=== PATIENT | female | born 1985 | race Caucasian/White ===

== ENCOUNTER 2024-12-06 04:50 | Emergency (ER) | payer OTHER, SELFPAY ==
[2024-12-06 04:52] VITALS: BP 129/87
[2024-12-06 05:03] VITALS: BP 128/75
--- NOTE | 2024-12-06 05:05 | ED.GENMED ---
History of Present Illness
<Drew Flynn MD - Last Filed: 12/06/24 17:11>
General
Chief Complaint: Heart Rate Problem
Source: patient and family
Exam Limitations: none
Time Seen by Provider: 12/06/24 05:05
Nursing documentation reviewed up to this point in time: agreed with
History of Present Illness
History of Present Illness:
Patient presents to ED secondary to a 1 week history of continual throat pain, fever, chills, and sweats. Patient was evaluated at primary care's office yesterday where she tested positive for strep throat. Patient was prescribed Augmentin, with 3
doses taken. She woke up this morning with was again fever, chills, and jaw pain. She has taken Advil with improvement. Denies vomiting or diarrhea. Denies trauma. Denies headache. Denies dizziness. No loss of appetite. Denies rash. In
addition, patient reports intermittent joint pain. Denies recent travel. Denies sick contact. Denies previous history of similar symptoms.
Review of Systems
<Drew Flynn MD - Last Filed: 12/06/24 17:11>
Review of Systems
Allergies reviewed?: Yes
All Other Systems: ROS reviewed and negative except as documented in HPI and ROS
Constitutional: Reports fever and chills
EENT: Reports sore throat
Respiratory: Reports cough; Denies trouble breathing
Cardiac: Reports no symptoms
ABD/GI: Reports no symptoms; Denies abdominal pain, vomiting or diarrhea
Musculoskeletal: Reports joint pain
Skin: Reports no symptoms; Denies rash
Neurological: Reports no symptoms; Denies headache or weakness
Phy Exam
<Drew Flynn MD - Last Filed: 12/06/24 17:11>
Physical Exam
Physical Exam:
Physical Exam
General: mild distress, not acutely ill. afebrile
Head: nc/at. eomi
Neck: supple. no meningeal signs. normal posterior pharynx. anterior cervical lymph nodes tender to palpation with mild swelling
Heart: s1/s2 regular rate and rhythm, no murmur. equal radial pulses.
Lungs: no acute respiratory distress. clear bilaterally
Abdomen: normal bowel sounds. not tender.
Neuro: alert and oriented x 3. no focal neurological deficits
Skin: no rash
Psychiatric: well kept. interactive and cooperative
Extremities: no edema. no calf tenderness.
Sepsis
<Drew Flynn MD - Last Filed: 12/06/24 17:11>
Sepsis Screening
Sepsis Assessment: Sepsis Ruled Out
Sepsis Screen
Sepsis Screen: Sepsis Ruled Out
Date: 12/06/24
Time: 17:11
Course
<Drew Flynn MD - Last Filed: 12/06/24 17:11>
Orders/Labs/Results
Orders:
Orders
12/06/24 04:57
EKG [Electrocardiogram (*1)] Urgent
Reason for Study: Tachycardia
EKG- Treatment ONCE
12/06/24 05:19
0.9% Sodium Chloride 1000 ml [Nss] 1,000 ml IV BOLUS
Dexamethasone Sod Phosphate [Decadron] 10 mg IV NOW STA
Ketorolac [Toradol] 15 mg IV NOW STA
Test Result ONCE
CR Soft Tissue Neck Urgent
Comment:
Reason For Exam: throat pain
12/06/24 05:32
Complete Blood Count/With Diff Urgent
Comprehensive Metabolic Panel Urgent
Free T4 Urgent
HCG, Serum Qualitative Screen Urgent
Lactic Acid Q4H
Comment: CANCEL 2nd LACTIC ACID IF 1st LACTIC ACID IS LESS THAN 2
Lyme Progressive Urgent
Magnesium Urgent
TSH Reflex To Free T4 Urgent
Comment: ADD ON
Blood Culture Q30M
ARACELI Source: Blood/Venous
Specimen Description:
12/06/24 06:02
Blood Culture Q30M
ARACELI Source: Blood/Venous
Specimen Description:
12/06/24 07:09
Add On- LAB Urgent
Tests Added?: TSH reflex Free T4
Abnormal Lab Results
12/06/24
05:32
RBC 3.74 L 10^6/uL
(4.20-5.40)
Hgb 10.8 L g/dL
(12.0-16.0)
Hct 31.6 L %
(37.0-47.0)
Absolute Neuts (auto) 6.6 H 10^3/uL
(1.4-6.5)
Absolute Monos (auto) 0.7 H 10^3/uL
(0.1-0.6)
Neutrophils % 75.5 H %
(42.2-75.2)
Lymphocytes % 14.1 L %
(20.5-51.1)
Creatinine 0.4 L mg/dL
(0.6-1.0)
Glucose 119 H mg/dl
(70-99)
Lactic Acid 0.6 L mmol/L
(0.7-2.0)
TSH (Reflex) < 0.02 L uIU/ml
(0.47-4.68)
Free T4 4.47 H ng/dl
(0.78-2.19)
12/06/24 05:32
12/06/24 05:32
Vital Signs
Initial and Last Documented VS:
Initial Vital Signs
Temp Pulse Resp BP Pulse Ox
98.7 F 131 20 129/87 100
12/06/24 04:52 12/06/24 04:52 12/06/24 04:52 12/06/24 04:52 12/06/24 04:52
Last Documented Vital Signs
Temp Pulse Resp BP Pulse Ox
98.7 F 117 21 128/75 98
12/06/24 04:52 12/06/24 07:15 12/06/24 07:15 12/06/24 05:03 12/06/24 07:24
<Paulo Butler, DO - Last Filed: 12/06/24 09:08>
Orders/Labs/Results
Orders:
Orders
12/06/24 04:57
EKG [Electrocardiogram (*1)] Urgent
Reason for Study: Tachycardia
EKG- Treatment ONCE
12/06/24 05:19
0.9% Sodium Chloride 1000 ml [Nss] 1,000 ml IV BOLUS
Dexamethasone Sod Phosphate [Decadron] 10 mg IV NOW STA
Ketorolac [Toradol] 15 mg IV NOW STA
Test Result ONCE
CR Soft Tissue Neck Urgent
Comment:
Reason For Exam: throat pain
12/06/24 05:32
Complete Blood Count/With Diff Urgent
Comprehensive Metabolic Panel Urgent
Free T4 Urgent
HCG, Serum Qualitative Screen Urgent
Lactic Acid Q4H
Comment: CANCEL 2nd LACTIC ACID IF 1st LACTIC ACID IS LESS THAN 2
Lyme Progressive Urgent
Magnesium Urgent
TSH Reflex To Free T4 Urgent
Comment: ADD ON
Blood Culture Q30M
ARACELI Source: Blood/Venous
Specimen Description:
12/06/24 06:02
Blood Culture Q30M
ARACELI Source: Blood/Venous
Specimen Description:
12/06/24 07:09
Add On- LAB Urgent
Tests Added?: TSH reflex Free T4
Abnormal Lab Results
12/06/24
05:32
RBC 3.74 L 10^6/uL
(4.20-5.40)
Hgb 10.8 L g/dL
(12.0-16.0)
Hct 31.6 L %
(37.0-47.0)
Absolute Neuts (auto) 6.6 H 10^3/uL
(1.4-6.5)
Absolute Monos (auto) 0.7 H 10^3/uL
(0.1-0.6)
Neutrophils % 75.5 H %
(42.2-75.2)
Lymphocytes % 14.1 L %
(20.5-51.1)
Creatinine 0.4 L mg/dL
(0.6-1.0)
Glucose 119 H mg/dl
(70-99)
Lactic Acid 0.6 L mmol/L
(0.7-2.0)
TSH (Reflex) < 0.02 L uIU/ml
(0.47-4.68)
Free T4 4.47 H ng/dl
(0.78-2.19)
12/06/24 05:32
12/06/24 05:32
Vital Signs
Initial and Last Documented VS:
Initial Vital Signs
Temp Pulse Resp BP Pulse Ox
98.7 F 131 20 129/87 100
12/06/24 04:52 12/06/24 04:52 12/06/24 04:52 12/06/24 04:52 12/06/24 04:52
Last Documented Vital Signs
Temp Pulse Resp BP Pulse Ox
98.7 F 117 21 128/75 98
12/06/24 04:52 12/06/24 07:15 12/06/24 07:15 12/06/24 05:03 12/06/24 07:24
<Drew Flynn MD - Last Filed: 12/06/24 17:11>
MDM/Problems Addressed
MDM/Problems Addressed:
Blood work within normal limits. Neck soft tissue headache, does not reveal any acute abnormal findings. Patient's presenting symptoms likely secondary to recently diagnosed strep pharyngitis. Patient will be provided with supportive treatment,
i.e. IV fluids, Toradol, and Decadron. If patient remains comfortable with improved heart rate after treatment, patient will be discharged home with recommendation to continue already prescribed Augmentin, as well as PCP follow-up as an outpatient.
Blood culture pending.
Lyme titer pending.
<Drew Flynn MD - Last Filed: 12/06/24 17:11>
*Pulse Oximetry
SaO2: 100
Oxygen Mode of Delivery: Room air
Patient hypoxic: no
*EKG
Interpreted by ED Provider?: Yes
EKG Intrepretation Date: 12/06/24
Heart Rate: 116
Rate: tachycardiac
Rhythm: sinus
[place]ton: normal axis
Interval: normal interval
QRS Pattern: normal QRS
*Critical Care Note
Total Time (30-74mins, 75-104mins- exclusive of procedures): Not Applicable
<Paulo Butler DO - Last Filed: 12/06/24 09:08>
Update Note
Update Note:
7:15 AM care of patient was transitioned earlier in the morning pending reassessment after fluids. Patient presented with throat discomfort and tachycardia. Blood work without clinically relevant abnormalities. Patient feeling better after IV
fluids. Soft tissue neck x-ray without significant abnormality. I did offer more IV fluids but patient states she feels comfortable going home. I will add on TSH testing
9:07 AM I called the patient's cell phone and left a message as we had previously discussed. I let her know that her thyroid-stimulating hormone is undetectable and her free T4 is elevated. We discussed having this followed by her primary care
ED Attending Note
<Drew Flynn MD - Last Filed: 12/06/24 17:11>
-
Portions of this chart may have been created with voice recognition software.� Occasional wrong word or��sound alike� substitutions may have occurred due to the inherent limitations of voice recognition software.
Discharge Plan
Departure
Patient Disposition: Home (Routine Discharge)
Date of Disposition: 12/06/24
Time of Disposition: 07:14
Patient with high blood pressure during this ER visit?: Yes
Discharge Problem:
Acute streptococcal pharyngitis
Instructions: Strep throat - ED discharge instructions
Prescriptions:
No Action
PNV,calcium [id number] acid [ Vitamin Plus Low Iron] 1 TABLET tablet
1 tab PO DAILY
Mag-Oxide
300 mg PO DAILY
ibuprofen 600 MG tablet
600 mg PO Q4HPRN PRN (Reason: moderate pain/cramps) 0RF
sertraline 50 MG tablet
50 mg PO DAILY Qty: 30 0RF
Referrals:
UNKNOWN - PT DOES,NOT KNOW [Family Provider]
Activity Restrictions/Additional Instructions:
Please return for any worsening symptoms.
You may return at any time if you have further concerns.
Please follow up with your doctor at the first available appointment, preferably this week.
As we discussed, I will call you later in the day when your thyroid function test returns.
Thank you for choosing [facility].
Interventions
Interventions:
*Risk Screen - Suicide Last Done: 12/06/24 04:52
*General Assessment Last Done: 12/06/24 04:52
*Neglect/Abuse Screening Last Done: 12/06/24 04:52
*ED- Fall Risk Assessment Last Done: 12/06/24 07:24
*ED COVID-19 Vaccine History Last Done: 12/06/24 07:24
*Nursing Disposition Last Done: 12/06/24 07:24
ED- Cardiac Assessment Last Done: 12/06/24 05:43
ED- Pulmonary Assessment Last Done: 12/06/24 05:43
Discharge Date and Time
Discharge Date/Time: 12/06/24 07:25
Print Language: AFGHAN
[2024-12-06] MEDS: TORADOL 15 MG IV (05:34)
[2024-12-06] MEDS: DECADRON 10 MG IV (05:35)
[2024-12-06] MEDS: NSS 1000 IV (05:35)
[2024-12-06 05:39] VITALS: BMI 24.6
[2024-12-06 05:49] LABS: Hematocrit 31.6 % (37.0-47.0); Hemoglobin 10.8 g/dL (12.0-16.0); Mean Corp Hgb Conc. 34.2 g/dL (33.0-37.0); Mean Corpuscular Volume 84.5 fL (81.0-99.0); Nucleated Red Blood Cells % 0 %; Platelet Count 206 10^3/uL (130-400); Red Cell Dist. Width 11.8 % (11.5-14.5)
[2024-12-06 06:11] LABS: ALT (SGPT) 14 U/L (0-35); AST (SGOT) 19 U/L (14-36); Albumin 3.8 g/dl (3.5-5.0); Alkaline Phosphatase 58 U/L (38-126); Blood Urea Nitrogen 16 mg/dl (7-17); Calcium 9.2 mg/dl (8.4-10.2); Carbon Dioxide 25 mmol/L (22-30); Chloride 107 mmol/L (98-107); Estimated Creatinine Clearance 108 ml/min; Glucose 119 mg/dl (70-99); HCG, Serum Qualitative Screen Negative; Magnesium 2.2 mg/dl (1.6-2.3); Potassium 4.5 mmol/L (3.5-5.1); Sodium 139 mmol/L (135-145); Total Protein 7.0 g/dl (6.3-8.2); eGFR > 60.00
[2024-12-08 12:57] LABS: Lyme Antibody Screen, EIA Negative (Negative)
== END 2024-12-06 07:25 | disposition home or self-care (01) ==
LOC: EMR 04:50
PROVIDERS: EMERGENCY PHYSICIAN Emergency Medicine
DX: J02.0 Streptococcal pharyngitis (principal); M25.50 Pain in unspecified joint; R68.84 Jaw pain; R00.0 Tachycardia, unspecified
CPT/HCPCS: 96374; 96375; 99285; 70360; 80053; 83605; 83735; 84439; 84443; 84703; 85025; 86618; 87040; 93005